=== PATIENT | male | born 1990 | race Caucasian/White ===

== ENCOUNTER 2016-09-21 13:26 | Emergency (ER) | payer OTHER ==
[2016-09-21 13:32] VITALS: BP 101/57; PULSE 82; RESP 16; TEMP 98.2; O2SAT 97
--- NOTE | 2016-09-21 13:46 | EDPHY ---
H & P Time Seen by Provider: 09/21/16 13:36 HPI/ROS: CHIEF COMPLAINT: Fall off skateboard, right knee injury HISTORY OF PRESENT ILLNESS: 26-year-old male presents to the emergency department with isolated pain to his right knee. The patient was skateboarding on Thursday, 2 days ago and somehow fell and twisted his right knee. He has pain especially with range of motion when he tries to bear weight. He denies hitting his head or losing consciousness. Denies neck or back pain. Denies chest pain or difficulty breathing. No abdominal pain. Denies paresthesias in upper lower extremities. Has no symptoms in his left lower extremity or in his upper extremities bilaterally. REVIEW OF SYSTEMS: Constitutional: No fever, no chills. Eyes: No double or blurry vision. ENT: No sore throat. Respiratory: No cough, no shortness of breath. Cardiac: No chest pain. Gastrointestinal: No abdominal pain, vomiting or diarrhea. Genitourinary: No dysuria. Musculoskeletal: No neck or back pain. Skin: No rashes. Neurological: No headache. Past Medical/Surgical History: ACL repair left knee Social History: Single and lives in [place] Smoking Status: Never smoked Physical Exam: General Appearance: Alert, no distress. No visible signs of trauma to his head. Mentating normally and answering questions appropriately. Eyes: Pupils equal and round. Extraocular motions are all intact. ENT: Mouth: Mucous membranes moist. Respiratory: No wheezing, rhonchi, or rales, lungs are clear to auscultation. Cardiovascular: Regular rate and rhythm. Gastrointestinal: Abdomen is soft and nontender, no masses, no rebound or guarding, bowel sounds normal. No CVA tenderness bilaterally. Neurological: Alert and oriented x 3, cranial nerves II through XII grossly intact Skin: Warm and dry, no rashes. Musculoskeletal: Nontender to palpate along the cervical, thoracic or lumbar spine. Neck is supple. Extremities: Effusion noted to the right knee. Patellar apprehension sign is negative. He has mild diffuse pain with palpation to the right knee. He is able to do a straight leg raise on the right side without difficulty. He has diffuse ecchymosis to the medial aspect of his right thigh. He has no palpable bony tenderness in his right femur or right hip. Full range of motion of the left lower extremity and upper extremities bilaterally. Psychiatric: Patient is oriented X 3, there is no agitation. Constitutional: Initial Vital Signs Temperature (C) 36.8 C 09/21/16 13:30 Heart Rate 82 09/21/16 13:30 Respiratory Rate 16 09/21/16 13:30 Blood Pressure 101/57 L 09/21/16 13:30 O2 Sat (%) 97 09/21/16 13:30 O2 Delivery Mode Room Air Allergies/Adverse Reactions: No Known Allergies Allergy (Unverified 09/21/16 13:32) Medical Decision Making - Diagnostics Imaging Results: Imaging Impressions Knee X-Ray 09/21/16 13:44 Impression: There is no acute osseous abnormality. If there is further clinical concern regarding the patient's symptoms, consider MR imaging. Imaging: I viewed and interpreted images myself Procedures: Patient was placed in straight leg knee immobilizer and examined post application in good placement with normal [employer]. ED Course/Re-evaluation: 26-year-old male presents to the emergency department with isolated pain to the right knee. X-rays of the right knee are pending. X-rays reveal no fractures. He was placed in straight leg knee immobilizer. Patient was given orthopedic referral. Differential Diagnosis: Including but not limited to fracture, dislocation, contusion, sprain Departure - Departure Disposition: Home, Routine, Self-Care Clinical Impression: Contusion of right knee Qualifiers: Encounter type: initial encounter Qualified Code(s): S80.01XA - Contusion of right knee, initial encounter Right knee sprain Qualifiers: Encounter type: initial encounter Involved ligament of knee: unspecified ligament Qualified Code(s): S83.91XA - Sprain of unspecified site of right knee , initial encounter Condition: Good Instructions: Knee Sprain (ED), Contusion in Adults (ED) Additional Instructions: Straight leg knee immobilizer for comfort and support. Ibuprofen 600 mg every 8 hours as needed for pain. Weightbear as tolerated. Follow up with orthopedic surgeon in 1 week to recheck. Referrals: Lee Millan MD [Medical Doctor] - 5-7 days, call for appt. (On-call orthopedic surgeon)
== END 2016-09-21 14:28 | disposition home or self-care (01) ==
DX: S83.91XA Sprain of unspecified site of right knee, initial encounter (principal); S80.01XA Contusion of right knee, initial encounter; V00.131A Fall from skateboard, initial encounter; Y93.51 Activity, roller skating (inline) and skateboarding
CPT/HCPCS: L1830